=== PATIENT | female | born 1970 | race Hispanic/Latino ===

== ENCOUNTER 2018-05-19 08:40 | Outpatient (CLI) | payer OTHER | END 2018-05-19 08:41 | disposition home or self-care (01) | LOC: BICMAMMO 08:40 | PROVIDERS: ATTEND Obstetrics & Gynecology | DX: Z12.31 Encounter for screening mammogram for malignant neoplasm of breast (principal); Z80.3 Family history of malignant neoplasm of breast | CPT/HCPCS: 77063; 77067 ==

== ENCOUNTER 2018-07-31 10:37 | Outpatient (CLI) | payer OTHER ==
--- NOTE | 2018-07-31 11:33 | RAD ---
KUB: HISTORY: Acute left flank pain. COMPARISON: None. FINDINGS: The bowel gas pattern is nonobstructive. Several calcifications are seen along the left side of the pelvis, two of which could very well be within the course of the distal left ureter. No definite jo al calculi. IMPRESSION: Possible distal left ureteral calculus. Further evaluation with CT would be recommended. POS: DOMI
== END 2018-07-31 10:38 | disposition home or self-care (01) ==
LOC: BICRAD 10:37
PROVIDERS: ATTEND Physician Assistant
DX: R10.9 Unspecified abdominal pain (principal)
CPT/HCPCS: 74018; 81001

== ENCOUNTER 2018-07-31 17:55 | Emergency (ER) | payer OTHER ==
[2018-07-31 18:41] LABS: #Basophils 0.1 thou/uL (0.0-0.2); #Eosinphils 0.2 thou/uL (0.0-0.7); #Lymphocytes 1.8 thou/uL (1.20-3.40); #Monocytes 0.7 thou/uL (0.11-0.59); #Neutrophils 6.5 thou/uL (1.40-6.50); %Eosinophils 1.8 % (0.0-10.0); %Lymphocytes 19.2 % (21.0-51.0); %Monocytes 7.6 % (0.0-10.0); %Neutrophils 70.4 % (42.0-75.0); Anisocytosis SLIGHT = 6-15 cells (100X) (0-5/hpf); Basophilic Stippling SLIGHT = 1-2 cells (100X) (None Seen); Elliptocytes SLIGHT = 2-5 cells (100X) (0-1/hpf); Hemoglobin 9.6 g/dL (12.0-16.0); Hypochromia SLIGHT = 6-15 cells (100X) (0-5/hpf); MDiff Complete? YES; Macrocytosis SLIGHT = 6-15 cells (100X) (0-5/hpf); Mean Platelet Volume 6.5 fL (7.4-10.4); Microcytosis SLIGHT = 6-15 cells (100X) (0-5/hpf); Platelet Count 488 thou/uL (130-400); Platelet Morphology Comment Appears Increased; RBC Distribution Width 15.4 % (11.5-14.5); Red Blood Cell (RBC) Count 4.77 mill/uL (4.20-5.40); Stomatocytes SLIGHT = 2-5 cells (100X) (0-1/hpf); Target Cells SLIGHT = 2-5 cells (100X) (0-1/hpf); White Blood Cell (WBC) Count 9.3 thou/uL (4.8-10.8)
[2018-07-31 18:43] LABS: Anion Gap 15 mmol/L (10-20); BUN (Urea Nitrogen) 12 mg/dL (7.0-18.7); Calc. Creatinine Clearance 0 mL/min (70-130); Calcium 9.6 mg/dL (7.8-10.44); Carbon Dioxide 22 mmol/L (22-29); Chloride 103 mmol/L (98-107); Estimated GFR-MDRD Greater than 90; Glucose 102 mg/dL (70-105); Potassium 3.6 mmol/L (3.5-5.1); Sodium 136 mmol/L (136-145)
--- NOTE | 2018-07-31 19:58 | CT ---
CT OF ABDOMEN AND PELVIS PERFORMED WITHOUT CONTRAST ENHANCEMENT: History: Left flank pain, acute. Comparison: KUB, earlier today which showed possible distal left ureteral calculus. FINDINGS: The lung bases are clear of any infiltrative process. The liver, spleen, pancreas regions all appear unremarkable. The gallbladder is somewhat contracted. Right and left adrenal glands are normal in appearance. There are no renal calculi identified. There is no obstruction and no definitive ureteral calculi. Calcifications within the pelvis appear to repr esent phleboliths, specifically, the left sided calcifications are felt to most likely to be phleboli ths on this exam. There is no significant periaortic or mesenteric adenopathy. CT OF PELVIS PERFORMED WITHOUT CONTRAST ENHANCEMENT: The appendix is normal. The endometrium appears somewhat thickened, probably related to stage of mens trual cycle. There appear to be some small follicles involving the adnexa. No free fluid. No inflamma tory process seen. IMPRESSION: No evidence of renal or ureteral calculi. There are some left sided pelvic calcifications which appea r to represent phleboliths. Some are very close to the distal left ureter but are not felt to be with in the ureter. POS: CARMEN
== END 2018-07-31 19:46 | disposition home or self-care (01) ==
LOC: SCSER 17:55
DX: M54.5 Low back pain (principal); E03.9 Hypothyroidism, unspecified; K21.9 Gastro-esophageal reflux disease without esophagitis; Z79.899 Other long term (current) drug therapy
CPT/HCPCS: 74018; 74176; 80048; 81001; 85025

== ENCOUNTER 2018-08-16 15:03 | Outpatient (CLI) | payer OTHER ==
--- NOTE | 2018-08-16 16:02 | ULT ---
Exam: Pelvic ultrasound including Transabdominal, Transvaginal, And Vascular Duplex with color and spectral Doppler imaging: HISTORY: Abnormal uterine bleeding COMPARISON: None FINDINGS: The uterus is9.3 x 4.6 x 6.0 cm with a possible small posterior fibroid 1.3 x 1.9 cm Endometrial thickness:1.1 cm Right ovary:Within normal limits. Left ovary:Not seen No abscess or significant abnormal fluid collection. Vascular duplex examination demonstrates no evidence for ovarian torsion IMPRESSION: No significant acute process within the pelvis Possible small uterine fibroid. No other acute process.
== END 2018-08-16 15:04 | disposition home or self-care (01) ==
LOC: SCSULT 15:03
PROVIDERS: ATTEND Physician Assistant
DX: N93.9 Abnormal uterine and vaginal bleeding, unspecified (principal)
CPT/HCPCS: 76856

== ENCOUNTER 2019-05-09 15:00 | Outpatient (CLI) | payer OTHER ==
--- NOTE | 2019-05-09 15:45 | RAD ---
EXAM: XR Lumbar Spine 2 Or 3 View PROVIDED CLINICAL HISTORY: Chronic low back pain with pain in left buttock. Sacroiliitis. COMPARISON: None FINDINGS: There are 5 nonrib-bearing lumbar-type vertebral bodies. A few minimal osteophytes are seen scattered anteriorly within the lumbar spine. Vertebral body heights are within normal limits. No fracture or subluxation is seen involving the lumbar spine. IMPRESSION: No acute osseous abnormality involving the lumbar spine. Minimal degenerative changes are present. MR I lumbar spine may be helpful for further evaluation given neurological deficit.
== END 2019-05-09 15:01 | disposition home or self-care (01) ==
LOC: SCSRAD 15:00
PROVIDERS: ATTEND Internal Medicine Rheumatology
DX: M46.1 Sacroiliitis, not elsewhere classified (principal); M54.5 Low back pain; M47.816 Spondylosis without myelopathy or radiculopathy, lumbar region
CPT/HCPCS: 72100